=== PATIENT | female | born 1975 | race Caucasian/White ===

== ENCOUNTER 2016-10-12 21:32 | Emergency (ER) | payer MEDICAID ==
[2016-10-12 23:59] VITALS: BP 179/106
== END 2016-10-12 23:59 | disposition home or self-care (01) ==
LOC: ED 21:32
DX: J02.9 Acute pharyngitis, unspecified (principal); H92.03 Otalgia, bilateral; H10.13 Acute atopic conjunctivitis, bilateral
CPT/HCPCS: J0696; J1100

== ENCOUNTER 2016-12-17 21:51 | Emergency (ER) | payer MEDICAID ==
[2016-12-17 22:41] LABS: BASOPHIL % 0.5 % (0-2); PLATELET COUNT 299 x10^3mcL (130-400)
[2016-12-17 22:45] LABS: CALCIUM 8.7 mg/dL (8.5-10.1); CARBON DIOXIDE 28.1 mmol/L (21-32); CHLORIDE SERUM 104 mmol/L (98-107); CREATININE SERUM 0.7 mg/dL (0.6-1.0); GFR1 > 60 mL/min; GLUCOSE SERUM 99 mg/dL (74-106); POTASSIUM SERUM 3.5 mmol/L (3.5-5.1); SODIUM SERUM 141 mmol/L (136-145)
[2016-12-17 22:46] LABS: RED CELL DISTRIBUTION WIDTH 15.4 % (11.5-14.5)
[2016-12-17 22:49] LABS: ALBUMIN 3.6 g/dL (3.4-5.0); ALKALINE PHOSPHATASE 97 U/L (46-116); ALT/SGPT 31 U/L (14-59); AST/SGOT 22 U/L (15-37); BILIRUBIN TOTAL 0.19 mg/dL (0.20-1.00); TOTAL PROTEIN, SERUM 7.4 g/dL (6.4-8.2)
[2016-12-17 23:30] VITALS: BP 147/81
== END 2016-12-17 23:30 | disposition home or self-care (01) ==
LOC: ED 21:51
PROVIDERS: Emergency Medicine
DX: R51 Headache (principal); I10 Essential (primary) hypertension; H92.03 Otalgia, bilateral; M54.2 Cervicalgia; H57.10 Ocular pain, unspecified eye
CPT/HCPCS: 36415; J1885

== ENCOUNTER 2017-09-16 16:46 | Emergency (ER) | payer MEDICAID ==
[~2017-09-16] VITALS: Ht 147.3 cm; Wt 78.0 kg
[2017-09-16 16:58] VITALS: Ht 147.3 cm; Wt 78.0 kg
[2017-09-16 17:49] LABS: ALBUMIN 3.9 g/dL (3.4-5.0); ALKALINE PHOSPHATASE 100 U/L (46-116); ALT/SGPT 33 U/L (14-59); AST/SGOT 27 U/L (15-37); BILIRUBIN TOTAL 0.3 mg/dL (0.20-1.00); CARBON DIOXIDE 28.6 mmol/L (21-32); CHLORIDE SERUM 102 mmol/L (98-107); CREATININE SERUM 0.5 mg/dL (0.6-1.0); GFR1 > 60 mL/min; GLUCOSE SERUM 117 mg/dL (74-106); LIPASE 115 IU/L (73-393); SODIUM SERUM 140 mmol/L (136-145)
[2017-09-16 17:51] LABS: TOTAL PROTEIN, SERUM 8.5 g/dL (6.4-8.2)
[2017-09-16 18:54] LABS: BASOPHIL % 0.5 % (0-2); PLATELET COUNT 292 x10^3mcL (130-400)
[2017-09-16 18:55] LABS: UA SPECIFIC GRAVITY <=1.005 (1.005-1.035); microscopic required? YES; urine erythrocyte 3+ (NEGATIVE)
[2017-09-16 22:28] VITALS: BP 152/100
== END 2017-09-16 22:28 | disposition home or self-care (01) ==
LOC: ED 16:46
PROVIDERS: Emergency Medicine
DX: R10.13 Epigastric pain (principal); R10.33 Periumbilical pain; R11.0 Nausea; I10 Essential (primary) hypertension
CPT/HCPCS: J2405; J3490; Q9967

== ENCOUNTER 2017-09-23 09:22 | Emergency (ER) | payer MEDICAID ==
[~2017-09-23] VITALS: Ht 147.3 cm; Wt 78.5 kg
[2017-09-23 09:35] VITALS: Ht 147.3 cm; Wt 78.5 kg
[2017-09-23 13:05] VITALS: BP 141/76
== END 2017-09-23 13:06 | disposition home or self-care (01) ==
LOC: ED 09:22
DX: R51 Headache (principal); I16.0 Hypertensive urgency
CPT/HCPCS: J1885

== ENCOUNTER 2017-09-24 16:50 | Emergency (ER) | payer MEDICAID ==
[~2017-09-24] VITALS: Ht 152.4 cm; Wt 81.6 kg
[2017-09-24 17:04] VITALS: Ht 152.4 cm; Wt 81.6 kg
[2017-09-24 18:21] VITALS: BP 146/94
== END 2017-09-24 18:21 | disposition home or self-care (01) ==
LOC: ED 16:50
DX: R51 Headache (principal); I10 Essential (primary) hypertension; K21.9 Gastro-esophageal reflux disease without esophagitis
CPT/HCPCS: J1885

== ENCOUNTER 2017-10-04 10:08 | Emergency (ER) | payer MEDICAID ==
[~2017-10-04] VITALS: Ht 152.4 cm; Wt 77.1 kg
[2017-10-04 10:21] VITALS: Ht 152.4 cm; Wt 77.1 kg
[2017-10-04 11:10] VITALS: BP 149/80
== END 2017-10-04 11:10 | disposition home or self-care (01) ==
LOC: ED 10:08
DX: R03.0 Elevated blood-pressure reading, without diagnosis of hypertension (principal)

== ENCOUNTER 2017-10-19 09:36 | Emergency (ER) | payer MEDICAID ==
[~2017-10-19] VITALS: Ht 147.3 cm; Wt 72.6 kg
[2017-10-19 09:40] VITALS: Ht 147.3 cm; Wt 72.6 kg
[2017-10-19 11:08] VITALS: BP 159/92
== END 2017-10-19 11:08 | disposition home or self-care (01) ==
LOC: ED 09:36
DX: R10.13 Epigastric pain (principal); R51 Headache; E66.9 Obesity, unspecified; I10 Essential (primary) hypertension
CPT/HCPCS: 82962

== ENCOUNTER 2017-12-05 08:50 | Emergency (ER) | payer MEDICAID ==
[~2017-12-05] VITALS: Ht 149.9 cm; Wt 78.0 kg
[2017-12-05 09:03] VITALS: Ht 149.9 cm; Wt 78.0 kg
[2017-12-05 11:49] VITALS: BP 137/72
== END 2017-12-05 11:49 | disposition home or self-care (01) ==
LOC: ED 08:50
DX: M79.1 Myalgia (principal); I10 Essential (primary) hypertension
CPT/HCPCS: J1885

== ENCOUNTER 2018-03-02 08:41 | Emergency (ER) | payer MEDICAID ==
[~2018-03-02] VITALS: Ht 152.4 cm; Wt 79.8 kg
[2018-03-02 10:53] LABS: BASOPHIL % 0.8 % (0-2); PLATELET COUNT 281 x10^3mcL (130-400); RED CELL DISTRIBUTION WIDTH 12.8 % (11.5-14.5)
[2018-03-02 10:56] LABS: UA SPECIFIC GRAVITY <=1.005 (1.005-1.035); microscopic required? YES; urine erythrocyte 1+ (NEGATIVE)
[2018-03-02 11:23] LABS: CALCIUM 8.9 mg/dL (8.5-10.1); CARBON DIOXIDE 24.6 mmol/L (21-32); CHLORIDE SERUM 105 mmol/L (98-107); CREATININE SERUM 0.5 mg/dL (0.6-1.0); GFR1 > 60 mL/min; GLUCOSE SERUM 106 mg/dL (74-106); POTASSIUM SERUM 3.9 mmol/L (3.5-5.1); SODIUM SERUM 136 mmol/L (136-145)
[2018-03-02 11:27] LABS: ALBUMIN 3.7 g/dL (3.4-5.0); ALKALINE PHOSPHATASE 97 U/L (46-116); ALT/SGPT 35 U/L (14-59); AST/SGOT 28 U/L (15-37); BILIRUBIN TOTAL 0.38 mg/dL (0.20-1.00); TOTAL PROTEIN, SERUM 7.7 g/dL (6.4-8.2)
[2018-03-02 12:45] VITALS: BP 118/54
== END 2018-03-02 12:45 | disposition home or self-care (01) ==
LOC: ED 08:41
PROVIDERS: Emergency Medicine
DX: G62.9 Polyneuropathy, unspecified (principal); M54.5 Low back pain
CPT/HCPCS: 36415

== ENCOUNTER 2018-04-10 09:08 | Emergency (ER) | payer MEDICAID ==
[~2018-04-10] VITALS: Ht 152.4 cm; Wt 81.6 kg
[2018-04-10 09:18] VITALS: Ht 152.4 cm; Wt 81.6 kg
[2018-04-10 11:36] VITALS: BP 131/73
== END 2018-04-10 11:36 | disposition home or self-care (01) ==
LOC: ED 09:08
DX: L02.413 Cutaneous abscess of right upper limb (principal); I10 Essential (primary) hypertension; Z98.890 Other specified postprocedural states
CPT/HCPCS: 90715; J2001

== ENCOUNTER 2018-04-12 08:35 | Emergency (ER) | payer MEDICAID ==
[~2018-04-12] VITALS: Ht 149.9 cm; Wt 81.2 kg
[2018-04-12 08:45] VITALS: BP 105/80; Ht 149.9 cm; Wt 81.2 kg
== END 2018-04-12 10:03 | disposition home or self-care (01) ==
LOC: ED 08:35
DX: L02.413 Cutaneous abscess of right upper limb (principal); Z48.01 Encounter for change or removal of surgical wound dressing; I10 Essential (primary) hypertension; Z98.890 Other specified postprocedural states

== ENCOUNTER 2018-07-23 06:39 | Emergency (ER) | payer MEDICAID ==
[2018-07-23 07:04] VITALS: Ht 160 cm
[2018-07-23 10:57] VITALS: BP 132/87
== END 2018-07-23 10:57 | disposition home or self-care (01) ==
LOC: ED 06:39
DX: J02.9 Acute pharyngitis, unspecified (principal); J06.9 Acute upper respiratory infection, unspecified; I10 Essential (primary) hypertension; Z98.890 Other specified postprocedural states
CPT/HCPCS: 87804; J1100; J1885

== ENCOUNTER 2018-09-16 06:13 | Emergency (ER) | payer MEDICAID ==
[~2018-09-16] VITALS: Ht 165.1 cm; Wt 81.6 kg
[2018-09-16 06:23] VITALS: Ht 165.1 cm; Wt 81.6 kg
[2018-09-16 07:27] VITALS: BP 115/78
== END 2018-09-16 07:27 | disposition home or self-care (01) ==
LOC: ED 06:13
DX: S29.011A Strain of muscle and tendon of front wall of thorax, initial encounter (principal); R10.9 Unspecified abdominal pain; M72.2 Plantar fascial fibromatosis; I10 Essential (primary) hypertension; Z98.890 Other specified postprocedural states; X58.XXXA Exposure to other specified factors, initial encounter; Y93.89 Activity, other specified; Y92.89 Other specified places as the place of occurrence of the external cause; Y99.8 Other external cause status

== ENCOUNTER 2018-10-18 19:20 | Emergency (ER) | payer MEDICAID ==
[2018-10-18 20:48] VITALS: BP 122/71
== END 2018-10-18 21:26 | disposition home or self-care (01) ==
LOC: ED 19:20
DX: S20.211A Contusion of right front wall of thorax, initial encounter (principal); S20.221A Contusion of right back wall of thorax, initial encounter; I10 Essential (primary) hypertension; Z98.890 Other specified postprocedural states; W18.30XA Fall on same level, unspecified, initial encounter; Y93.89 Activity, other specified; Y92.89 Other specified places as the place of occurrence of the external cause; Y99.8 Other external cause status
CPT/HCPCS: Q0092

== ENCOUNTER 2018-10-29 07:06 | Emergency (ER) | payer MEDICAID ==
[~2018-10-29] VITALS: Ht 149.9 cm; Wt 81.6 kg
[2018-10-29 07:09] VITALS: BP 104/66; Ht 149.9 cm; Wt 81.6 kg
== END 2018-10-29 08:23 | disposition home or self-care (01) ==
LOC: ED 07:06
DX: H57.11 Ocular pain, right eye (principal); L03.211 Cellulitis of face; I10 Essential (primary) hypertension; Z98.890 Other specified postprocedural states

== ENCOUNTER 2019-04-09 11:43 | Emergency (ER) | payer MEDICAID ==
[~2019-04-09] VITALS: Ht 152.4 cm; Wt 79.8 kg
[2019-04-09 11:51] VITALS: BP 110/75
== END 2019-04-09 12:31 | disposition home or self-care (01) ==
LOC: ED 11:43
DX: B95.8 Unspecified staphylococcus as the cause of diseases classified elsewhere (principal); M79.622 Pain in left upper arm; Z98.890 Other specified postprocedural states

== ENCOUNTER 2019-08-13 08:43 | Emergency (ER) | payer MEDICAID ==
[~2019-08-13] VITALS: Ht 149.9 cm; Wt 81.6 kg
[2019-08-13 08:50] VITALS: BP 117/80; Ht 149.9 cm; Wt 81.6 kg
== END 2019-08-13 09:17 | disposition home or self-care (01) ==
LOC: ED 08:43
DX: B34.9 Viral infection, unspecified (principal); I10 Essential (primary) hypertension; Z98.890 Other specified postprocedural states

== ENCOUNTER 2019-11-02 11:59 | Emergency (ER) | payer MEDICAID ==
[~2019-11-02] VITALS: Ht 152.4 cm; Wt 83.0 kg
[2019-11-02 12:03] VITALS: Ht 152.4 cm; Wt 83.0 kg
[2019-11-02 12:43] LABS: BASOPHIL % 0.5 % (0-2); PLATELET COUNT 311 x10^3mcL (130-400); RED CELL DISTRIBUTION WIDTH 13.2 % (11.5-14.5)
[2019-11-02 12:45] LABS: microscopic required? YES; urine erythrocyte 1+ (NEGATIVE)
[2019-11-02 12:52] LABS: CALCIUM 9.4 mg/dL (8.5-10.1); CARBON DIOXIDE 27.4 mmol/L (21-32); CHLORIDE SERUM 103 mmol/L (98-107); CREATININE SERUM 0.5 mg/dL (0.6-1.0); GFR1 > 60 mL/min; GLUCOSE SERUM 108 mg/dL (74-106); SODIUM SERUM 139 mmol/L (136-145)
[2019-11-02 12:57] LABS: ALBUMIN 3.9 g/dL (3.4-5.0); ALKALINE PHOSPHATASE 92 U/L (46-116); ALT/SGPT 41 U/L (14-59); AST/SGOT 27 U/L (15-37); BILIRUBIN TOTAL 0.3 mg/dL (0.20-1.00); TOTAL PROTEIN, SERUM 7.8 g/dL (6.4-8.2)
[2019-11-02 14:27] VITALS: BP 139/81
== END 2019-11-02 14:27 | disposition home or self-care (01) ==
LOC: ED 11:59
PROVIDERS: Emergency Medicine
DX: R10.13 Epigastric pain (principal); R10.33 Periumbilical pain; R30.0 Dysuria; H92.02 Otalgia, left ear; R07.89 Other chest pain; I10 Essential (primary) hypertension; Z98.890 Other specified postprocedural states
CPT/HCPCS: 36415; 87491; 87591

== ENCOUNTER 2019-12-31 07:57 | Emergency (ER) | payer MEDICAID ==
[~2019-12-31] VITALS: Ht 152.4 cm; Wt 82.1 kg
[2019-12-31 08:05] VITALS: Ht 152.4 cm; Wt 82.1 kg
[2019-12-31 10:47] LABS: microscopic required? YES; urine erythrocyte 1+ (NEGATIVE)
[2019-12-31 13:33] VITALS: BP 122/74
== END 2019-12-31 13:33 | disposition home or self-care (01) ==
LOC: ED 07:57
PROVIDERS: Emergency Medicine
DX: R31.9 Hematuria, unspecified (principal); R30.0 Dysuria; I10 Essential (primary) hypertension; Z98.890 Other specified postprocedural states
CPT/HCPCS: 82962